=== PATIENT | male | born 2000 | race Caucasian/White ===

== ENCOUNTER → 2021-01-17 | Outpatient (CLI) | payer OTHER ==
[~2021-01-17] MED LIST: HOLD METFORMIN - RECEIVED CONTRAST 20 ML VIAL IV SCH; IOHEXOL 350 MG/ML 100 ML (OMNIPAQUE 350) VIAL IV ONE; NS 100 ML (IVPB) BAG IV ONE
--- NOTE | 2021-01-17 12:50 | Diagnostic Imaging Report ---
PROCEDURE: CT angiography of the head with and without contrast. TECHNIQUE: Noncontrast CT of the head was obtained. Subsequently, after intravenous administration of contrast, thin section axial CT angiography of the head was performed. Source data was reformatted into multiple MIP reformats. Delayed postcontrast acquisition of the head was also acquired. Auto Exposure Controls were utilized during the CT exam to meet ALARA standards for radiation dose reduction. INDICATION: Severe posterior headache. COMPARISON: None. FINDINGS: CTA brain: Both internal carotid arteries are normal in course and caliber. The internal carotid artery terminus is unremarkable bilaterally. There is normal opacification of both of the anterior and middle cerebral arteries bilaterally. There is no evidence of significant stenosis or aneurysm. The MCA trifurcation and the distal branch vessels are unremarkable bilaterally. There is no evidence of significant stenosis or aneurysm. The anterior communicating artery is visualized and is unremarkable. In the posterior circulation, both of the vertebral arteries demonstrate normal opacification. The left vertebral artery is dominant. Both the right and left PICA arteries are identified. The basilar artery is normal in course and caliber. The terminal branch vessels including the superior cerebellar arteries are unremarkable. The posterior cerebral arteries are widely patent without focal stenosis. CT brain: No large acute territorial ischemia, mass, or hemorrhage. No midline shift or mass effect. The ventricles, cortical sulci, and basilar cisterns are patent and unremarkable. The calvarium is intact. The paranasal sinuses and mastoid air cells are clear. The globes and orbits are symmetric and unremarkable. IMPRESSION: 1. No evidence of intracranial aneurysm or significant stenosis. 2. No hemorrhage, mass, or evidence of territorial ischemia. Dictated by: Dictated on workstation # [id number]
== END ==
LOC: RAD 11:27
PROVIDERS: ATTEND Internal Medicine
DX: R51.9 Headache, unspecified (principal)
CPT/HCPCS: 70496